=== PATIENT | female | born 1960 | race Caucasian/White ===

== ENCOUNTER 2021-08-15 06:00 | Day surgery (SDC) | payer OTHER ==
[~2021-08-15] VITALS: Ht 170.2 cm; Wt 57.2 kg
[~2021-08-15 06:00] MED LIST: ESCI-8 PO; LISI-657 PO; PANT-31 PO; QUET50TA15 PO; SODIUM CHLORIDE 0.9% 1,000 ML ONE
[2021-08-15] MEDS ORDERED: LIDOCAINE 2% 30 ML JELLY TP ONE (06:01)
[2021-08-15] MEDS ORDERED: LIDOCAINE 4% 50 ML SOLUTION TP ONE (06:01)
[2021-08-15] MEDS ORDERED: BENZOCAINE 20% 50 MCG/SPRAY 57 GM TP ONE (06:01)
[2021-08-15] MEDS ORDERED: ALBUTEROL SULFATE 2.5 MG/0.5 ML NEB SOLUTION NEB ONE (06:01)
[2021-08-15] MEDS ORDERED: SODIUM CHLORIDE 0.9% 1,000 ML IV ONE (06:30)
[2021-08-15] MEDS ORDERED: FentaNYL CITRATE PF 100 MCG/2 ML VIAL ONE (06:48)
[2021-08-15] MEDS ORDERED: MIDAZOLAM HCL 5 MG/ML VIAL ONE (06:49)
[2021-08-15] MEDS ORDERED: MethylPREDNISolone SOD SUCC 125 MG/2 ML VIAL IVP ONE (09:00)
[2021-08-15] MEDS ORDERED: MethylPREDNISolone SOD SUCC 125 MG/2 ML VIAL ONE (09:57)
[2021-08-15] MEDS ORDERED: OXYGEN THERAPY IH SCH (20:00)
== END 2021-08-15 11:40 | disposition home or self-care (01) ==
LOC: SURGERY 06:00
PROVIDERS: ATTEND Internal Medicine Critical Care Medicine
DX: J38.4 Edema of larynx (principal); B37.0 Candidal stomatitis; Z79.899 Other long term (current) drug therapy; Z98.890 Other specified postprocedural states
CPT/HCPCS: 31623; 31624; 71045; 87015; 87070; 87101; 87206; 87220; 88184; 88185; J2250; J2930; J3010; J7030; 88112; J7613; Z7610